=== PATIENT | female | born 1965 | race Hispanic/Latino ===

== ENCOUNTER 2020-01-23 08:16 | Outpatient (CLI) | payer MEDICAID | END 2020-01-23 08:17 | disposition home or self-care (01) | LOC: LABHHL 08:16 | PROVIDERS: ATTEND Surgery | DX: N63.10 Unspecified lump in the right breast, unspecified quadrant (principal) | CPT/HCPCS: 88305 ==

== ENCOUNTER 2020-01-30 06:10 | Observation (INO) | payer MEDICAID, OTHER ==
[~2020-01-30 06:10] MED LIST: WATER FOR IRRIG STERILE 1,500 ML BOTTLE IR ONE; ceFAZolin/Water 2 GM/20 ML 2 GM/20 ML SYRINGE IV NR
[2020-01-30] MEDS ORDERED: ACETAMINOPHEN 500 MG TAB PO NR (07:14)
[2020-01-30] MEDS ORDERED: ONDANSETRON 4 MG/2 ML INJ IV PRN ×2 (07:14→12:54)
[2020-01-30] MEDS ORDERED: MAGNESIUM OXIDE 400 MG TAB PO NR (07:14)
--- NOTE | 2020-01-30 07:23 | Anesthesia Day of Surgery ---
Anesthesia Day of Surgery - Day of Surgery Patient Examined: Yes Patient H&P Reviewed: Yes Patient is NPO: Yes Beta Blockers: Yes
--- NOTE | 2020-01-30 07:24 | Anesthesia Consultation ---
Anesthesia Consult and Med Hx Date of service: 01/30/20 - Airway Anesthetic Teeth Evaluation: Dentures, Edentulous ROM Head & Neck: Adequate Mental/Hyoid Distance: Adequate Mallampati Class: Class II Intubation Access Assessment: Good - Pre-Operative Health Status ASA Pre-Surgery Classification: ASA2 Proposed Anesthetic Plan: General Nerve Block: PEC - Pulmonary Hx Smoking: Yes (1/2 PPD; SINCE HER 30'S) Hx Asthma: Yes (States she can climb two flights of stairs) COPD: Yes (PRN NEBS AND INH) - Cardiovascular System Hx Hypertension: Yes (AT LEAST 10 YRS. Had ECHO a month ago) Hx Cardia Arrhythmia: Yes (Palpitations) - Central Nervous System Hx Psychiatric Problems: Yes - Gastrointestinal Hx Gastroesophageal Reflux Disease: Yes - Endocrine Hx Renal Disease: Yes (Hx stones) Hx Liver Disease: Yes (Spots on liver from PET scan) Hx Non-Insulin Dependent Diabetes: Yes Hx Thyroid Disease: No - Other Systems Hx Alcohol Use: No Hx Substance Use: No Hx Cancer: Yes Hx Obesity: Yes (BMI 37)
[2020-01-30] MEDS ORDERED: METOCLOPRAMIDE 10 MG TAB PO NR (07:25)
[2020-01-30] MEDS ORDERED: METOCLOPRAMIDE 10 MG TAB ONE (07:26)
[2020-01-30] MEDS ORDERED: ROCURONIUM 50 MG/5 ML INJ IV ONE (07:38)
[2020-01-30] MEDS ORDERED: LIDOCAINE MPF (2%) 20 MG/1 ML VIAL 5 ML ONE (07:38)
[2020-01-30] MEDS ORDERED: dexAMETHasone 20 MG/5 ML VIAL ONE (07:38)
[2020-01-30] MEDS ORDERED: propofoL 200 MG/20 ML VIAL IV ONE (07:39)
[2020-01-30] MEDS ORDERED: CELECOXIB 200 MG CAP PO NR (08:00)
[2020-01-30] MEDS ORDERED: FAMOTIDINE 20 MG TAB PO NR (08:00)
[2020-01-30] MEDS ORDERED: METOCLOPRAMIDE 10 MG/2 ML INJ IV NR (08:00)
[2020-01-30] MEDS ORDERED: MIDAZOLAM 2 MG/2 ML INJ IV NR (08:00)
[2020-01-30] MEDS ORDERED: LACTATED RINGERS 1,000 ML IV SCH ×2 (08:00→13:00)
[2020-01-30] MEDS ORDERED: WATER FOR IRRIG STERILE 1,500 ML BOTTLE IR ONE (10:25)
[2020-01-30] MEDS ORDERED: BUPIVACAINE-EPINEPHRINE/PF 0.5%-1:200,000 (30 ML) VIAL INFILTRATI ONE (12:10)
[2020-01-30] MEDS ORDERED: SUCCINYLCHOLINE CHLORIDE 200 MG/10 ML INJ MDV ONE (12:41)
[2020-01-30] MEDS ORDERED: PHENYLEPHRINE/NS 1,000 MCG/10 ML SYRINGE (OR USE) IV ONE (12:41)
[2020-01-30] MEDS ORDERED: NEOSTIGMINE 10MG/10 ML INJ MDV ONE (12:41)
[2020-01-30] MEDS ORDERED: GLYCOPYRROLATE 0.4 MG/2 ML INJ ONE (12:41)
[2020-01-30] MEDS ORDERED: METOCLOPRAMIDE 10 MG TAB PO PRN (12:54)
[2020-01-30] MEDS ORDERED: diphenhydrAMINE 25 MG CAP PO PRN (12:54)
[2020-01-30] MEDS ORDERED: ACETAMINOPHEN 325 MG TAB PO PRN (12:54)
[2020-01-30] MEDS ORDERED: ALBUTEROL 2.5 MG/3 ML NEBU IH PRN (12:57)
[2020-01-30] MEDS ORDERED: MORPHINE 2 MG/1 ML INJ IV PRN (12:57)
[2020-01-30] MEDS ORDERED: HYDROmorphone 1 MG/1 ML INJ ONE (13:01)
--- NOTE | 2020-01-30 13:23 | Operative Report ---
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 Scrap Kettle Tender: Dr. Cabezas Anesthesia: Gen. Findings: Bilateral breast clips present within radiograph specimen Complications: None Drains: Bilateral 19 Divehi IRENA drains Estimated blood loss: 100 cc Disposition: PACU in good condition Indications for operative procedure: This is a 54-year-old lady with bilateral breast sarcoma-Stage IV, left breast upper outer quadrant of at least 12 cm at the 3:00 position and right breast sarcoma of the lower inner quadrant of 6-8 mm at the 4:00 position 4-5 cm FN. Recommedations were to proceed with a left total mastectomy given sarcoma tumor size and recommended proceeding with a right total mastectomy given disease progression of left breast sarcoma. Left breast sarcoma progressed in size despite neoadjuvant chemotherapy and surgery recommended. She wished to proceed with the above procedure. Procedure in detail: The patient was taken to the operating room and was placed supine. Gen. anesthesia was administered. Timeout was performed. Typical mastectomy incision markings were made with markings encompassing left tumor and right tumor; wide left flap mastectomy marking made to encompass left breast sarcoma with at least 2-3 cm margins. Attention was taken toward the left breast first. First began raising of the superior flap to the level of the clavicle superiorly and posteriorly to the pectoralis muscle. Followed by raising of the medial flap to the level of the sternum and posteriorly to the pectoralis muscle. Followed by raising of the lateral flap to the level of the latissimus dorsi muscle and taken down posteriorly. Followed by raising of the inferior flap to the level below the inframammary fold given location of sarcom and taken posterior to the pectoralis muscle. The mastectomy/breast was removed from the pectoralis muscle without incident. The specimen was appropriately marked and sent to radiology and pathology. x1 breast clip present. Hemostasis was obtained. Chest wall cavity was irrigated and suctioned. IRENA drain placed. The subcutaneous tissues were approximated and closed using interrupted 3-0 Vicryl followed by running 4-0 Monocryl and dermabond. Attention was taken towards the right breast. A skin incision was made with a 10 blade knife and dissection taken down to the subcutaneous tissues. First began raising of the superior flap to the level of the clavicle superiorly and posteriorly to the pectoralis muscle. Followed by raising of the medial flap to the level of the sternum and posteriorly to the pectoralis muscle. Followed by raising of the lateral flap to the level of the latissimus dorsi muscle and taken down posteriorly. Then proceeded with raising of the inferior flap to the level of the inframammary fold taken posterior to the pectoralis muscle. The mastectomy/breast was removed from the pectoralis muscle without incident. The specimen was appropriately marked and sent to radiology with findings of x1 breast clip present and sent to pathology. Chest wall cavity was irrigated and suctioned. Hemostasis was obtained. 19 Fr IRENA drain placed. The subcutaneous tissues were approximated and closed using interrupted 3-0 Vicryl followed by a running 4-0 Monocryl and dermabond. Anesthesia then placed bilateral pectoral muslce block. She was then extubated and transported to PACU in good condition.
--- NOTE | 2020-01-30 13:28 | Short Stay Summary ---
Short Stay Documentation Date of service: 01/30/20 - History H&P: obtained from office - Allergies and Medications Current Medications: Allergies No Known Allergies Allergy (Unverified 10/28/14 11:42) Home Medications Medication Instructions Recorded Confirmed Last Taken Type Albuterol Sulfate [Proventil HFA] 1 - 2 puff IH Q4H PRN #1 hfa.aer.ad 10/28/14 01/30/20 01/30/20 05:00 Rx Metformin HCl [Glucophage] 1,000 mg PO BID #60 tablet 10/28/14 01/30/20 01/29/20 17:00 Rx ALBUTEROL NEB's [Proventil 0.083% 2.5 mg IH TID PRN 01/26/20 01/26/20 Unknown History NEBS] AtorvaSTATin [Lipitor] 40 mg PO QHS 01/26/20 01/30/20 01/29/20 21:00 History Famotidine [Pepcid] 20 mg PO BID 01/26/20 01/30/20 01/29/20 17:00 History Fenofibrate 160 mg PO DAILY 01/26/20 01/30/20 01/29/20 09:00 History Metoprolol Xl [Metoprolol 100 mg PO QDAY 01/26/20 01/30/20 01/30/20 05:00 History SUCCINATE ER TAB] Mv-Mn/Folic Acid/Calcium/Vit K 1 each PO DAILY 01/26/20 01/30/20 01/29/20 09:00 History [[facility] One Daily Women's 50 Plus] glipiZIDE [Glucotrol] 5 mg PO BID 01/26/20 01/30/20 01/29/20 17:00 History hydroCHLOROthiazide [HCTZ] 25 mg PO QDAY 01/26/20 01/30/20 01/29/20 09:00 History oxyCODONE /ACETAMINOPHEN 1 tab PO Q8HR PRN 01/26/20 01/30/20 01/29/20 22:00 History Active Medications Acetaminophen (Tylenol) 1,000 mg PO ONCE NR Stop: 01/30/20 16:00 Last Admin: 01/30/20 07:30 Dose: 1,000 mg Documented by: Acetaminophen (Tylenol) 650 mg PO Q6H PRN PRN Reason: Pain MILD(1-3)/Fever >100.5/BENNETT Albuterol (Proventil) 2.5 mg IH TID PRN PRN Reason: Wheezing Celecoxib (Celebrex) 200 mg PO PREOP NR Stop: 01/30/20 16:00 Last Admin: 01/30/20 07:30 Dose: 200 mg Documented by: Diphenhydramine HCl (Benadryl) 25 mg PO Q8H PRN PRN Reason: Itching Docusate Sodium (Colace) 100 mg PO BID SMITHA Famotidine (Pepcid) 20 mg PO PREOP NR Stop: 01/30/20 16:00 Last Admin: 01/30/20 07:30 Dose: 20 mg Documented by: Fentanyl (Sublimaze) 50 mcg IV Q5MIN PRN PRN Reason: Pain , Severe (7-10) Stop: 01/30/20 23:00 Cefazolin Sodium (Ancef/Sterile Water 2 Gm/20 Ml) 2 gm in 20 mls @ 80 mls/hr IV PREOP NR; Protocol Stop: 01/30/20 23:59 Lactated Ringer's (Lactated Ringers) 1,000 mls @ 100 mls/hr IV DIRECT SMITHA Last Admin: 01/30/20 07:30 Dose: 100 mls/hr Documented by: Lactated Ringer's (Lactated Ringers) 1,000 mls @ 125 mls/hr IV DIRECT SMITHA Metoclopramide HCl (Reglan) 10 mg PO Q6H PRN PRN Reason: Nausea And Vomiting Midazolam HCl (Versed) 2 mg IV PREOP NR Stop: 01/30/20 23:59 Last Admin: 01/30/20 07:40 Dose: 2 mg Documented by: Morphine Sulfate (Morphine) 2 mg IV Q4H PRN PRN Reason: Pain, Moderate (4-6) Ondansetron HCl (Zofran) 4 mg IV Q8H PRN PRN Reason: N/V unrelieved by Reglan Oxycodone/Acetaminophen (Percocet 5/325) 2 tab PO Q6H PRN PRN Reason: Pain, Moderate (4-6) Sodium Chloride (Sodium Chloride Flush Syringe 10 Ml) 10 ml IV PRN PRN PRN Reason: LINE FLUSH - Brief post op/procedure progress note Date of procedure: 01/30/20 Pre-op diagnosis: [place] breast sarcoma Post-op diagnosis: same Procedure: Bilateral mastectomy Anesthesia: GETA Findings: bilateral breast clips present x2 Surgeon: SOUMYA SIGALA Estimated blood loss: 50-100ml Pathology: list Specimen disposition: to lab Condition: stable - Disposition Condition at discharge: Good Disposition: DC/TX- [facility] HOSP IP Short Stay Discharge Plan Activity: other (no heavy lifting) Diet: regular Wound: keep clean and dry Follow up with: TOAN LUEVANO MD [Primary Care Provider] - 7 Days SOUMYA SIGALA MD [Staff Physician] - 7 Days
[2020-01-30] MEDS ORDERED: fentaNYL 100 MCG/2 ML INJ ONE ×2 (13:44→14:07)
[2020-01-30] MEDS: fentaNYL 100 MCG/2 ML INJ IV PRN ×4 (13:45→14:24)
[2020-01-30] MEDS ORDERED: ONDANSETRON 4 MG/2 ML INJ ONE (14:08)
[2020-01-30] MEDS ORDERED: LACTATED RINGERS 1,000 ML ONE (14:44)
[2020-01-30] MEDS: oxyCODONE /ACETAMINOPHEN 5-325MG TAB PO PRN ×2 (17:13→23:31)
--- NOTE | 2020-01-30 18:16 | Post Anesthesia Evaluation ---
- Post Anesthesia Evaluation Patient Participated: Yes Airway Patent: Yes Stable Respiratory Function: Yes Nausea/Vomiting: No Temp > 96.8F: Yes Pain Manageable: Yes Adequeate Hydration: Yes Anesthesia Complications: No Block Receding Appropriately: Yes Patient on Ventilator: No
[2020-01-30] MEDS ORDERED: DOCUSATE SODIUM 100 MG CAP PO SCH (22:00)
[2020-01-31] MEDS: oxyCODONE /ACETAMINOPHEN 5-325MG TAB PO PRN ×2 (06:07→12:16)
[2020-01-31] MEDS ORDERED: NITROGLYCERIN 2% OINT 1 GM TP ONE (07:24)
[2020-01-31] MEDS ORDERED: DEXTROSE 50% IN WATER (25GM) 50 ML SYRINGE IV PRN (07:26)
[2020-01-31] MEDS ORDERED: INSULIN REGULAR, HUMAN 100 UNITS/1 ML SUB-Q SCH (07:30)
--- NOTE | 2020-01-31 07:33 | Progress Note ---
Assessment and Plan This is a 54 year old lady with Stage IV bilateral breast sarcomas POD#1 bilateral mastectomy. 1. No acute events overnight; pain in good control. 2. Bilateral chest incisions with no hematoma; left upper mid mastectomy flap with 1 cm area of slight decrease skin perfusion and will apply nitropaste. 3. IRENA drain education. 4. OOB to hallway. 5. D/C planning for today and patient has followup on Sunday. Subjective Date of service: 01/31/20 Principal diagnosis: Bilateral breast sarcoma Interval history: POD#1 bilateral total mastectomy for bilateral breast sarcoma Objective - Constitutional Vitals: Vital Signs - 12hr 01/30/20 01/31/20 01/31/20 20:56 00:41 04:57 Temperature 98.3 F 99.1 F 98.8 F Pulse Rate 71 72 77 Respiratory 18 18 20 Rate Blood Pressure 118/49 134/59 146/61 O2 Sat by Pulse 96 96 95 Oximetry General appearance: Present: no acute distress - EENT Eyes: PERRL, EOM intact ENT: hearing intact, clear oral mucosa, dentition normal Ears: bilateral: normal - Neck Neck: supple, normal ROM - Respiratory Respiratory effort: normal - Breasts Breasts: other (awilda chest incisions c/d/i; no hematoma; IRENA drains to bulb suction; left upper mid mastectom flap with very slight decrease skin perfusion and will apply nitropaste) - Cardiovascular Rhythm: regular Extremities: no ischemia, pulses intact, pulses symmetrical, No edema, normal temperature, normal color, Full ROM - Gastrointestinal General gastrointestinal: Present: soft, non-tender, non-distended - Genitourinary Female genitourinary: deferred - Integumentary Integumentary: clear, warm, dry - Musculoskeletal Musculoskeletal: strength equal bilaterally - Neurologic Neurologic: CNII-XII intact, moves all extremities - Psychiatric Psychiatric: appropriate mood/affect, intact judgment & insight, memory intact, cooperative Medications & Allergies - Medications Allergies/Adverse Reactions: Allergies No Known Allergies Allergy (Unverified 10/28/14 11:42) Home Medications: Home Medications Medication Instructions Recorded Confirmed Last Taken Type Albuterol Sulfate [Proventil HFA] 1 - 2 puff IH Q4H PRN #1 hfa.aer.ad 10/28/14 01/30/20 01/30/20 05:00 Rx Metformin HCl [Glucophage] 1,000 mg PO BID #60 tablet 10/28/14 01/30/20 01/29/20 17:00 Rx ALBUTEROL NEB's [Proventil 0.083% 2.5 mg IH TID PRN 01/26/20 01/26/20 Unknown History NEBS] AtorvaSTATin [Lipitor] 40 mg PO QHS 01/26/20 01/30/20 01/29/20 21:00 History Famotidine [Pepcid] 20 mg PO BID 01/26/20 01/30/20 01/29/20 17:00 History Fenofibrate 160 mg PO DAILY 01/26/20 01/30/20 01/29/20 09:00 History Metoprolol Xl [Metoprolol 100 mg PO QDAY 01/26/20 01/30/20 01/30/20 05:00 History SUCCINATE ER TAB] Mv-Mn/Folic Acid/Calcium/Vit K 1 each PO DAILY 01/26/20 01/30/20 01/29/20 09:00 History [[facility] One Daily Women's 50 Plus] glipiZIDE [Glucotrol] 5 mg PO BID 01/26/20 01/30/20 01/29/20 17:00 History hydroCHLOROthiazide [HCTZ] 25 mg PO QDAY 01/26/20 01/30/20 01/29/20 09:00 History oxyCODONE /ACETAMINOPHEN 1 tab PO Q8HR PRN 01/26/20 01/30/20 01/29/20 22:00 History oxyCODONE /ACETAMINOPHEN [Percocet 2 tab PO Q6HR PRN #30 tablet 01/31/20 Unknown Rx 5/325] Active Medications: Generic Name Dose Route Start Last Admin Trade Name Freq PRN Reason Stop Dose Admin Acetaminophen 650 mg 01/30/20 12:54 Tylenol PO Q6H PRN Pain MILD(1-3)/Fever >100.5/BENNETT Albuterol 2.5 mg 01/30/20 12:57 Proventil IH TID PRN Wheezing Dextrose 50 ml 01/31/20 07:26 D50w (25gm) Syringe IV Q30MIN PRN Hypoglycemia Protocol Diphenhydramine HCl 25 mg 01/30/20 12:54 Benadryl PO Q8H PRN Itching Docusate Sodium 100 mg 01/30/20 22:00 01/30/20 21:28 Colace PO 100 mg BID SMITHA Administration Glipizide 5 mg 01/31/20 10:00 Glucotrol PO BID SMITHA Lactated Ringer's 1,000 mls @ 100 mls/hr 01/30/20 08:00 01/30/20 07:30 Lactated Ringers IV 100 mls/hr DIRECT SMITHA Administration Lactated Ringer's 1,000 mls @ 125 mls/hr 01/30/20 13:00 Lactated Ringers IV DIRECT SMITHA Insulin Human Regular 0 units 01/31/20 07:30 Humulin R SUB-Q ACHS SMITHA Protocol Metoclopramide HCl 10 mg 01/30/20 12:54 Reglan PO Q6H PRN Nausea And Vomiting Morphine Sulfate 2 mg 01/30/20 12:57 Morphine IV Q4H PRN Pain, Moderate (4-6) Nitroglycerin 0.5 inch 01/31/20 07:24 Nitro-Bid 2% TP 01/31/20 07:25 ONCE ONE Protocol Ondansetron HCl 4 mg 01/30/20 12:54 Zofran IV Q8H PRN N/V unrelieved by Reglan Oxycodone/Acetaminophen 2 tab 01/30/20 12:54 01/31/20 06:07 Percocet 5/325 PO 2 tab Q6H PRN Administration Pain, Moderate (4-6) Sodium Chloride 10 ml 01/30/20 12:54 Sodium Chloride Flush Syringe 10 Ml IV PRN PRN LINE FLUSH
[2020-01-31] MEDS ORDERED: glipiZIDE 5 MG TAB PO SCH (10:00)
[2020-01-31 13:07] VITALS: BP 119/62
--- NOTE | 2020-02-02 07:49 | Mammography Report ---
SPECIMEN RADIOGRAPH LEFT BREAST INDICATION: Surgical excision of left angiosarcoma.. Bilateral breast angiosarcoma. COMPARISON: 05/27/2019 mammogram FINDINGS: At 11 cm mass is identified within the specimen and the mass has increased in size from 8 cm since last exam. IMPRESSION: 1. Excision of the known cancer.. Signer Name: Kai Espitia MD Signed: 02/02/2020 7:45 AM Workstation Name: [id number]
--- NOTE | 2020-02-02 07:52 | Mammography Report ---
SPECIMEN RADIOGRAPH RIGHT BREAST INDICATION: RT POST EXC BX. Bilateral breast angiosarcoma COMPARISON: No relevant prior imaging study available. FINDINGS: A 1.6 cm mass biopsy clip is identified within the specimen. IMPRESSION: 1. Excision of the known cancer.. Signer Name: Kai Espitia MD Signed: 02/02/2020 7:48 AM Workstation Name: [id number]
== END 2020-01-31 13:00 | disposition home or self-care (01) ==
LOC: OR 06:10 → OB 12:55
PROVIDERS: ADMIT Surgery; ATTEND Surgery
DX: C50.311 Malignant neoplasm of lower-inner quadrant of right female breast (principal); C50.412 Malignant neoplasm of upper-outer quadrant of left female breast
CPT/HCPCS: 19303; 76098; 82962; 88309; 96374; 96375; G0378; J0330; J0690; J1100; J1170; J2250; J2370; J2405; J2704; J2710; J3010; J7120